=== PATIENT | female | born 1995 | race Caucasian/White ===

== ENCOUNTER 2018-08-08 14:38 | Emergency (ER) | payer SELFPAY ==
[~2018-08-08] VITALS: Wt 54.5 kg
[2018-08-08 14:41] VITALS: BP 129/78; PULSE 94; RESP 18
== END 2018-08-08 15:00 | disposition left against medical advice (07) ==
LOC: FTE 14:38
DX: Z53.21 Procedure and treatment not carried out due to patient leaving prior to being seen by health care provider (principal)

== ENCOUNTER 2018-08-08 18:26 | Emergency (ER) | payer BC ==
[~2018-08-08] VITALS: Ht 154.9 cm; Wt 63.0 kg
[2018-08-08 18:40] VITALS: Ht 154.9 cm; Wt 63.0 kg
[2018-08-08] MEDS ORDERED: ACETAMINOPHEN 325 MG TAB PO STA (19:23)
[2018-08-08] MEDS ORDERED: SOD CHLORIDE 0.9% 1,000 ML IV STA (19:27)
--- NOTE | 2018-08-08 19:30 | ERD ---
ER Documentation Chief Complaint Chief Complaint patient requesting to have baby checked. found out she is . HPI 23-year-old female presents to have ultrasound performed. States that she just found out she was yesterday. She states that her period has been very sporadic and she is unable to determine when her LMP was. Patient is a G3, P1 female. Denies any abdominal pain, spotting, vaginal discharge, pelvic pain. Denies any medical problems. Denies any allergies. ROS All systems reviewed and are negative except as per history of present illness. Allergies Allergies: Coded Allergies: No Known Drug Allergies (Verified Allergy, Unknown, 08/08/18) PMhx/Soc Medical and Surgical Hx: pt denies Medical Hx, pt denies Surgical Hx Hx Alcohol Use: No Hx Substance Use: No Hx Tobacco Use: No Smoking Status: Never smoker FmHx Family History: No diabetes, No coronary disease, No other Physical Exam Vitals Vital Signs Date Temp Pulse Resp B/P (MAP) Pulse Ox O2 O2 Flow FiO2 Time Delivery Rate 08/08/18 100.5 111 20 134/81 100 18:40 (98) Physical Exam Const: No acute distress Head: Atraumatic Eyes: Normal Conjunctiva ENT: Normal External Ears, Nose and Mouth. Neck: Full range of motion. No meningismus. Resp: Clear to auscultation bilaterally Cardio: Regular rate and rhythm, no murmurs Abd: Soft, non tender, non distended. Normal bowel sounds Skin: No petechiae or rashes Back: No midline or flank tenderness Ext: No cyanosis, or edema Neur: Awake and alert Psych: Normal Mood and Affect Result Diagram: 08/08/181934 Results 24 hrs Laboratory Tests Test 08/08/18 19:35 White Blood Count 10.2 10^3/ul Red Blood Count 3.89 10^6/ul Hemoglobin 12.0 g/dl Hematocrit 35.0 % Mean Corpuscular Volume 90.0 fl Mean Corpuscular Hemoglobin 30.8 pg Mean Corpuscular Hemoglobin Concent 34.3 g/dl Red Cell Distribution Width 12.5 % Platelet Count 255 10^3/UL Mean Platelet Volume 10.4 fl Immature Granulocytes % 0.600 % Neutrophils % 58.7 % Lymphocytes % 29.5 % Monocytes % 9.2 % Eosinophils % 1.3 % Basophils % 0.7 % Nucleated Red Blood Cells % 0.0 /100WBC Immature Granulocytes # 0.060 10^3/ul Neutrophils # 6.0 10^3/ul Lymphocytes # 3.0 10^3/ul Monocytes # 0.9 10^3/ul Eosinophils # 0.1 10^3/ul Basophils # 0.1 10^3/ul Nucleated Red Blood Cells # 0.0 10^3/ul Urine Color YELLOW Urine Clarity SLIGHTLY CLOUDY Urine pH 7.0 Urine Specific [place] 1.014 Urine Ketones NEGATIVE mg/dL Urine Nitrite NEGATIVE mg/dL Urine Bilirubin NEGATIVE mg/dL Urine Urobilinogen NEGATIVE mg/dL Urine Leukocyte Esterase 1+ [place]/ul Urine Microscopic RBC 6 /HPF Urine Microscopic WBC 47 /HPF Urine Squamous Epithelial Cells MODERATE /HPF Urine Bacteria FEW /HPF Urine Hemoglobin 1+ mg/dL Urine Glucose NEGATIVE mg/dL Urine Total Protein NEGATIVE mg/dl Beta HCG, Quantitative < 2.4 mIU/ml Current Medications Medications Dose Sig/Laurie Start Time Status Last (Trade) Ordered Route PRN Stop Time Admin Dose Reason Admin 1,000 mg ONCE STAT 08/08/18 DC Acetaminophen PO 19:23 08/08/18 (Tylenol 19:26 Tab) Sodium 1,000 ml @ Q1H STAT 08/08/18 DC 08/08/18 Chloride 1,000 mls/hr IV 19:27 08/08/18 19:33 20:26 Procedures/MDM DIAGNOSTIC IMAGING REPORT Patient: YARA HENDERSON : 1995 Age: 23 Sex: F MR #: [id number] DOS: 08/08/181922 Ordering MD: NATALIA HYMAN Location: [facility] Room/Bed: PROCEDURE: US Pelvis. CLINICAL INDICATION: vaginal bleeding TECHNIQUE: Multiple sonographic images of the pelvis were obtained utilizing a transabdominal and endovaginal technique. The images were reviewed on a PACS workstation. COMPARISON: None. FINDINGS: The uterus is normal in size and demonstrates a normal appearance of the myometrium. The uterus measures 6.1 x 3.9 x 5.2 cm in size. The endometrial stripe is homogeneous in appearance and has the thickness of 4 mm. No intrauterine gestation is noted. The ovaries are normal in size and echogenicity. Normal Doppler flow is identified in both ovaries. The right ovary measures 4.2 x 2.4 x 2.4 cm. There is a corpus luteum hemorrhagic cyst in the right ovary measuring 1.9 cm. The left ovary measures 2.8 x 1.6 x 2.1 cm. No free fluid is present within the pelvis.. RPTAT: AA IMPRESSION: No intrauterine gestation visualized. Right ovarian corpus luteum hemorrhagic cyst. Differential diagnosis includes early , missed or ectopic . Follow-up ultrasound and HCG levels is recommended. .Papi Buenrostro MD, MD Date Time Electronically viewed and signed by .Papi Buenrostro MD, MD on 08/08/2018 21:02 .S/ CC: NATALIA HYMAN [phone] MDM: Patient was unable to give an LMP therefore ultrasound was performed in hopes that there would be a gestational age however there was no intrauterine noted. In addition patient's hCG is very low. I told patient that th is time we cannot rule out ectopic so patient would not need to come back in 48 hours for repeat ultrasound and blood work. Patient understood and agreed to do this. At this time I have low suspicion for ectopic , ruptured ectopic, missed , or any other emergent condition. Patient did not complain of any abdominal pain or bleeding. Patient discharged with strict ER precautions. Patient advised to follow up with PMD. All questions answered at discharge. Departure Diagnosis: Primary Impression: Early stage of Condition: Stable NATALIA HYMAN Aug 08, 2018 19:30
[2018-08-08 21:35] VITALS: BP 126/80; PULSE 70; RESP 18
== END 2018-08-08 21:36 | disposition home or self-care (01) ==
LOC: FTE 18:26
DX: Z32.01 Encounter for pregnancy test, result positive (principal)
CPT/HCPCS: 36415; 76801; 76817; 81001; 84702; 85025; 86900; 86901; 96360; J7030; Z7502; Z7610

== ENCOUNTER 2018-08-16 20:24 | Emergency (ER) | payer BC ==
[~2018-08-16] VITALS: Ht 154.9 cm; Wt 62.3 kg
[2018-08-16 20:27] VITALS: BP 116/56; PULSE 64; RESP 18; Ht 154.9 cm; Wt 62.3 kg
--- NOTE | 2018-08-16 22:38 | ERD ---
ER Documentation Chief Complaint Chief Complaint 16 WKS PG, VAG BLEED, HX OF MISCARRIAGE HPI 23-year-old female with no reported past medical surgical history who presents with complaint of vaginal bleeding. She reports that she is 16 weeks however patient recently seen in this ED on August 08 and with ultrasound with no intrauterine , beta-hCG less than 2.4. Patient states she was not told that she was not at the time. She now returns with complaint of vaginal bleeding, using 3 tampons over the past 2 days per patient. I informed patient that she had this likely uterine bleeding from normal menses. She otherwise denies fevers, chills, urinary symptoms such as burning itching or frequency, vaginal discharge, passage of clots 1 bleeding. ROS All systems reviewed and are negative except as per history of present illness. Allergies Allergies: Coded Allergies: No Known Drug Allergies (Verified Allergy, Unknown, 08/08/18) PMhx/Soc Medical and Surgical Hx: pt denies Medical Hx History of Surgery: Yes ( x1) Anesthesia Reaction: No Hx Neurological Disorder: No Hx Respiratory Disorders: No Hx Cardiac Disorders: No Hx Psychiatric Problems: No Hx Miscellaneous Medical Probl: No Hx Alcohol Use: No Hx Substance Use: No Hx Tobacco Use: No Smoking Status: Never smoker FmHx Family History: No diabetes, No coronary disease, No other Physical Exam Vitals Vital Signs Date Temp Pulse Resp B/P (MAP) Pulse Ox O2 O2 Flow FiO2 Time Delivery Rate 08/16/18 98.5 64 18 116/56 99 20:27 (76) Physical Exam I have reviewed the triage vital signs. Const: Well nourished, well developed, appears stated age Eyes: PERRL, no conjunctival injection HENT: NCAT, Neck supple without meningismus CV: RRR, Warm, well-perfused extremities RESP: CTAB, Unlabored respiratory effort GI: soft, non-tender, non-distended, no masses MSK: No gross deformities appreciated Skin: Warm, dry. No rashes Neuro: grossly non focal Psych: Appropriate mood and affect. Procedures/MDM 23-year-old female reportedly 16 weeks who presents with normal uterine bleeding. Recently seen in ED with ultrasound without intrauterine , beta-hCG below 2.4. Given these findings I have low suspicion for any acute process warranting further emergent care or work-up at this time. Explained to patient in detail that she is not currently and that her symptoms are likely secondary to her menses. She will be discharged with strict return precautions and advised to follow-up with PMD. DISPOSITION PLAN: We discussed follow up with the patient's primary care doctor within 24 to 48 hours. Patient counseled regarding my diagnostic impression and care plan. Prior to discharge all questions answered. Pt agrees with treatment plan and understands strict return precautions. Precautionary instructions provided including instructions to return to the ER if not improving or for any worsening or changing symptoms or concerns. Disclaimer: Inadvertent spelling and grammatical errors are likely due to EHR/dictation software use and do not reflect on the overall quality of patient care. Also, please note that the electronic time recorded on this note does not necessarily reflect the actual time of the patient encounter. Departure Diagnosis: Primary Impression: Uterine bleeding Condition: Stable Patient Instructions: Understanding Uterine Bleeding Additional Instructions: Call your primary care doctor TOMORROW for an appointment during the next 2-3 days.See the doctor sooner or return here if your condition worsens before your appointment time. KHLOE MOSS PA-C Aug 16, 2018 22:38
== END 2018-08-16 23:26 | disposition left against medical advice (07) ==
LOC: FTE 20:24
DX: N93.9 Abnormal uterine and vaginal bleeding, unspecified (principal)
CPT/HCPCS: 99282